=== PATIENT | male | born 1980 | race Caucasian/White ===

== ENCOUNTER 2018-10-13 11:41 | Emergency (ER) | payer BC ==
[2018-10-13] MEDS ORDERED: Ketorolac 60 MG/2 ML SDV IM ONE (13:14)
--- NOTE | 2018-10-13 13:19 | EDM.PDOC ---
ED HPI GENERAL MEDICAL PROBLEM - General Chief Complaint: ENT Problem Stated Complaint: JAW PAIN Time Seen by Provider: 10/13/18 13:10 Source of Information: Reports: Patient, RN Notes Reviewed History Limitations: Reports: No Limitations - History of Present Illness INITIAL COMMENTS - FREE TEXT/NARRATIVE: 38-year-old gentleman presents emergency department today complaint of jaw pain , he does have a history of sleep apnea uses a dental apparatus he has not used that for the last couple days, he may have been grinding his teeth pain is located right at the TMJ on the left side Left Upper Jaw Pain Score (Numeric/FACES): 3 - Related Data Allergies Allergy/AdvReac Type Severity Reaction Status Date / Time No Known Allergies Allergy Verified 10/13/18 12:55 Home Meds: Home Meds Sertraline HCl [Zoloft] 50 mg PO DAILY 10/13/18 [History] Past Medical History HEENT History: Reports: Impaired Vision Musculoskeletal History: Reports: Back Pain, Chronic Psychiatric History: Reports: Anxiety, Depression - Past Surgical History Head Surgeries/Procedures: Reports: None HEENT Surgical History: Reports: Other (See Below) GI Surgical History: Reports: Appendectomy Musculoskeletal Surgical History: Reports: None Dermatological Surgical History: Reports: None Social & Family History - Tobacco Use Smoking Status *Q: Former Smoker Used Tobacco, but Quit: Yes Month/Year Tobacco Last Used: 2011 - Caffeine Use Caffeine Use: Reports: Coffee - Alcohol Use Days Per Week of Alcohol Use: 5 Number of Drinks Per Day: 2 Total Drinks Per Week: 10 - Recreational Drug Use Recreational Drug Use: No ED ROS ENT - Review of Systems Review Of Systems: See Below HEENT: Reports: Other (Jaw pain). Denies: Dental Pain, Throat Pain, Throat Swelling Respiratory: Reports: No Symptoms ED EXAM, ENT - Physical Exam Exam: See Below Text/Narrative:: Mouth mucosa is moist and pink there is no erythema or exudate noted in soft palate tongue is midline uvula is midline dentition is intact ears clear to landmarks and light reflex bilaterally he is tender point tenderness at the TMJ left side and unappreciated any significant edema pain is elicited when he bites down on a tongue depressor neck is supple no thyromegaly no tracheal deviation lungs are clear to auscultation bilaterally and cardiovascular demonstrates a regular rate and rhythm S1 and S2 Exam Limited By: No Limitations General Appearance: Alert, WD/WN, No Apparent Distress Course - Vital Signs Last Recorded V/S: Last Vital Signs Temp 97.3 F 10/13/18 12:56 Pulse 85 10/13/18 12:56 Resp 14 10/13/18 12:56 BP 138/84 10/13/18 12:56 Pulse Ox 97 10/13/18 12:56 - Orders/Labs/Meds Meds: Medications Discontinued Medications Generic Name Dose Route Start Last Admin Trade Name Michaela PRN Reason Stop Dose Admin Ketorolac Tromethamine 60 mg 10/13/18 13:14 Toradol IM 10/13/18 13:15 ONETIME ONE Departure - Departure Time of Disposition: 13:18 Disposition: Home, Self-Care 01 Condition: Fair Clinical Impression: Jaw pain - Discharge Information Referrals: PCP,None [Primary Care Provider] - Additional Instructions: Continue to use ibuprofen for pain control can take 600 mg 4 times a day, also Flexeril one tablet by mouth 3 times a day as needed for muscle spasm, please follow-up with your primary care upon returning home - Assessment/Plan Plan: Assessment Acuity = acute Site and laterality = jaw pain left side Etiology = TMJ point tenderness Manifestations = none Location of injury = Home Lab values = none Plan Provided Toradol 60 mg IM prescription written for Flexeril 10 mg by mouth 3 times a day when necessary total #15 he will use ibuprofen as well to control pain follow-up primary care upon returning home This note was dictated using [employer] voice recognition software please call with any questions on syntax or grammar.
== END 2018-10-13 13:26 | disposition home or self-care (01) ==
LOC: JP.ED 11:41
DX: R68.84 Jaw pain (principal); F41.9 Anxiety disorder, unspecified; F32.9 Major depressive disorder, single episode, unspecified; Z79.899 Other long term (current) drug therapy; Z87.891 Personal history of nicotine dependence
CPT/HCPCS: 96372; 99283